=== PATIENT | female | born 1955 | race Two or more races ===

== ENCOUNTER → 2022-02-09 | Day surgery (SDC) | payer OTHER ==
[~2022-02-09] VITALS: Ht 165.1 cm; Wt 72.6 kg
[~2022-02-09] MED LIST: ANAST PO
== END | disposition home or self-care (01) ==
LOC: ADM 02-07 15:30 → CIR.AMB 05:55
PROVIDERS: ATTEND Surgery
DX: C50.411 Malignant neoplasm of upper-outer quadrant of right female breast (principal); Z17.0 Estrogen receptor positive status [ER+]; R59.0 Localized enlarged lymph nodes; Z20.822 Contact with and (suspected) exposure to COVID-19; Z88.6 Allergy status to analgesic agent; Z86.16 Personal history of COVID-19; M79.7 Fibromyalgia
CPT/HCPCS: 19301; 19281; 38525; 78195; A9541; L8699